=== PATIENT | male | born 1950 | race Caucasian/White ===

== ENCOUNTER 2018-07-31 16:55 | Inpatient (IN) | payer MEDICARE | END 2018-08-04 12:50 | disposition home or self-care (01) | LOC: EDH 16:55 → 3DH 08-01 00:30 → EDHIP 18:57 | DX: C18.9 Malignant neoplasm of colon, unspecified (principal); K52.9 Noninfective gastroenteritis and colitis, unspecified; E86.0 Dehydration ==